=== PATIENT | female | born 1980 | race Caucasian/White ===

== ENCOUNTER 2019-08-21 13:39 | Emergency (ER) | payer SELFPAY ==
[~2019-08-21] VITALS: Ht 160 cm; Wt 63.5 kg
== END 2019-08-21 14:23 | disposition home or self-care (01) ==
LOC: FSED 13:39
DX: K02.9 Dental caries, unspecified (principal); F17.200 Nicotine dependence, unspecified, uncomplicated
CPT/HCPCS: 99283